=== PATIENT | male | born 1950 | race Caucasian/White ===

== ENCOUNTER 2019-04-10 13:10 | Outpatient (CLI) | payer OTHER | END 2019-04-10 14:05 | disposition home or self-care (01) | LOC: SONOGRAMA 13:10 | DX: M19.90 Unspecified osteoarthritis, unspecified site (principal) ==

== ENCOUNTER 2019-07-23 11:01 | Outpatient (CLI) | payer OTHER | END 2019-07-23 11:07 | disposition home or self-care (01) | LOC: RAD 11:01 | DX: J44.9 Chronic obstructive pulmonary disease, unspecified (principal); M12.9 Arthropathy, unspecified ==

== ENCOUNTER 2020-05-28 02:42 | Inpatient (IN) | payer OTHER ==
[~2020-05-28] VITALS: Ht 165.1 cm; Wt 77.1 kg
[~2020-05-28 02:42] MED LIST: LANTUS SOL100 UNIT/1; NEURONTIN300 MG; SERTRALINE20 MG/1 ML; SIMVASTATIN5 MG; TERAZOSIN HCL1 M1
== END 2020-06-05 21:22 | disposition home or self-care (01) | DRG 66 ==
LOC: ER 02:42 → ICU-2 20:06 → MEDI 06-02 06:35 → SEC-K 06-02 07:32 → SURH 06-02 07:35
PROVIDERS: ADMIT Internal Medicine Cardiovascular Disease; ATTEND Internal Medicine Cardiovascular Disease
PROC: BW28ZZZ Computerized Tomography (CT Scan) of Head (ICD-10-PCS; principal; 2020-05-28)
PROC: B345ZZZ Ultrasonography of Bilateral Common Carotid Arteries (ICD-10-PCS; 2020-05-28)
PROC: B24BZZZ Ultrasonography of Heart with Aorta (ICD-10-PCS; 2020-05-29)
PROC: 4A12X4Z Monitoring of Cardiac Electrical Activity, External Approach (ICD-10-PCS; 2020-06-02)
DX: I63.331 Cerebral infarction due to thrombosis of right posterior cerebral artery (principal); I10 Essential (primary) hypertension; I08.1 Rheumatic disorders of both mitral and tricuspid valves; E11.9 Type 2 diabetes mellitus without complications; Z20.828 Contact with and (suspected) exposure to other viral communicable diseases; Z79.4 Long term (current) use of insulin